=== PATIENT | male | born 1945 | race African-American/Black ===

== ENCOUNTER 2020-08-16 06:32 | Outpatient (CLI) | payer OTHER, SELFPAY ==
--- NOTE | ~2020-08-16 | NM_ITS ---
EXAMINATION: NM bone scan whole body DATE: 08/16/2020 11:02 INDICATION: Prostate cancer TECHNIQUE: 24.2 mCi Tc-99m HDP was administered intravenously. Delayed whole-body scintigrams were o btained. COMPARISON: There are no relevant imaging studies at our institution. FINDINGS: Typical pattern of mild likely degenerative joint and disc centered uptake at the lower cervical spin e, the facet joints of the lower lumbar spine (left greater than right), the bilateral ankles (left g reater than right), bilateral sternoclavicular joints and multiple joints at the bilateral hands. Sof t tissue uptake at the right wrist and forearm likely representing extravasation at the site of injec tion and more proximal local lymphatic uptake. Additional small foci of soft tissue uptake along the medial aspect of the proximal thighs: The medial right calf most likely related to urine contaminatio n. No other suspicious foci of abnormal bone uptake to suggest metastatic disease. IMPRESSION: 1. No evident osseous metastatic disease. Reviewed, dictated and finalized at location A. [facility] [employer]
== END 2020-08-16 06:33 | disposition home or self-care (01) ==
PROVIDERS: PCP Internal Medicine; Visit Provider Urology
DX: C61 Malignant neoplasm of prostate (principal)
CPT/HCPCS: 78306; A9561

== ENCOUNTER 2021-04-12 08:06 | Outpatient (CLI) | payer OTHER, SELFPAY ==
--- NOTE | ~2021-04-12 | NM_ITS ---
EXAMINATION: NM bone scan whole body DATE: 04/12/2021 13:29 INDICATION: Prostate cancer. TECHNIQUE: 26.4 mCi Tc-99m HDP was administered intravenously. Delayed whole-body scintigrams were o btained. COMPARISON: Bone scan 08/16/2020, CT abdomen and pelvis 04/12/2021 FINDINGS: There is joint-centered increased activity in the acromioclavicular joints, sternoclavicula r joints, hands, and knees, likely osteoarthritis. There is increased activity in lumbar spine correl ating with degenerative disc disease and facet joint osteoarthritis by CT. Again seen is increased ac tivity in the area of left ankle joint, which may be osteoarthritis or a chronic fracture. IMPRESSION: 1. No evidence of metastatic disease. Reviewed, dictated and finalized at location A.
--- NOTE | ~2021-04-12 | CT_ITS ---
EXAMINATION: CT abdomen pelvis w con DATE: 04/12/2021 09:24 INDICATION: Prostate cancer TECHNIQUE: Computed tomography (CT) of the abdomen and pelvis was performed with 100 cc Omnipaque 350 intravenous contrast. The dose-length product was 440.72 mGy-cm. Automated exposure control and iter ative reconstruction technique were employed. COMPARISON: None. FINDINGS: There is bilateral lower lobe and right middle lobe atelectasis. Heart size normal. No sign ificant pleural or pericardial effusion. Fatty infiltration of the liver. There are several small subcentimeter hypodensities of the liver, mo st likely benign cysts or hemangiomas. Gallbladder is present. The spleen, pancreas, adrenal glands a nd left kidney are unremarkable. Small subcentimeter hypodensity of the right kidney, most likely ivan ign cysts. Gallbladder is contracted. Colonic diverticulosis without evidence for diverticulitis. Nor mal appendix. No free air or free fluid. Moderate atherosclerosis without aneurysm. There are radiati on therapy implants in the prostate bed. No lymphadenopathy. There is advanced lumbar spondylosis at L4-5. No lytic or blastic lesions to suggest metastasis. Small fat-containing left inguinal hernia. IMPRESSION: 1. No evidence for metastatic disease. 2: Bibasilar atelectasis. 3: Colonic diverticulosis without evidence for diverticulitis. Reviewed, dictated and finalized at location A.
[2021-04-12 09:14] LABS: Estimated Glomerular Filt Rate > 60
== END 2021-04-12 08:07 | disposition home or self-care (01) ==
PROVIDERS: PCP Internal Medicine; Visit Provider Urology
DX: C61 Malignant neoplasm of prostate (principal); R91.8 Other nonspecific abnormal finding of lung field; K57.30 Diverticulosis of large intestine without perforation or abscess without bleeding
CPT/HCPCS: 74177; 78306; A9561; Q9967

== ENCOUNTER 2021-11-24 12:30 | Outpatient (RCR) | payer OTHER, SELFPAY ==
--- NOTE | 2021-10-21 13:44 | PTOPEVAL ---
PHYSICAL THERAPY EVALUATION AND PLAN OF CARE 10-21-21 Thank you for referring John Kim . to [facility] for vestibular rehab/ [facility].? He is scheduled to be seen for therapy? 2 x/week for 4 weeks. Please review, sign, date and return this plan of care ELIANE. I agree with and certify that the following plan of care is medically necessary. Referring Physician Date Attending Provider: Dewey Lee MD PT Outpatient Evaluation Document 10/21/21 12:35 MADELAINE (Rec: 10/21/21 13:44 MADELAINE [id number]) Outpatient Past Medical History Past Medical History Source of Past Medical History Patient Neurological History Hx Neurological Disorders No Significant History Cardiovascular History Hx Hypertension Yes: meds Respiratory History Hx Other Respiratory Disorders Yes: sinus congestion Gastrointestinal History Hx Other Gastrointestinal Disorders Yes: hiatial hernia Musculoskeletal History Hx Orthopedic Surgery Yes: L foot surgery- in walking boot HEENT History Hx Sinus Problems Yes Hx Other HEENT Disorders Yes: ringing in ears, loss of hearing, pain in ear L Other History Hx Cancer Yes: prostate cancer with radiation seeds Hx Other Medical Conditions Yes: issues with sleeping- take lorazapam Evaluation Information Problem Diagnosis B positional vertigo Onset Sep 2021 Prior Level of Function Activity Level (Last 3 Months) Activity of Daily Living Ability Independent Indoor/Home Mobility Independent Community Mobility Independent Stairs Ability Independent Functional Cognition (Planning, Shopping Independent , Taking Medications) Cooking Yes Cleaning Yes Laundry Yes Shopping Yes Driving Yes Home Setting Living Situation With Spouse Mobility Assistive Devices (Used Last 3 None,Cane Months) Comments Additional Prior Level of Function use cane when balance is off Comments from dizziness, help confidence with walking; no falls in the past 6 months; have walking shoe on L foot due to recent foot surgery; reports can do all things at home, but take time doing them Pain Assessment Timing of Pain Assessment Timing of Pain Assessment Assessment Pain Scale Pain Scale Used Numeric (1 - 10) Self Report Pain Assessment Left Spine, Cervical Reported Pain Level
--- NOTE | 2021-10-26 09:54 | PCPTNOTE ---
Patient called & cancelled scheduled appointment this date due to getting test for covid.
--- NOTE | 2021-11-04 11:52 | PCPTNOTE ---
Patient called & cancelled scheduled appointment this date due to not feeling well.
--- NOTE | 2021-11-16 10:37 | PCPTNOTE ---
Patient came in complaining of a having headache,stating he didn't sleep much, feeling nauseate & just not feeling well. Also, stated that his left foot was looking good. Checked his BP 184/86, O2 @ 97%, gave him some water, rechecked BP after 10 mins 176/82. Cancelled his scheduled appointment this date due to BP being elevated, & him not feeling right. Instructed patient to rest & is he doesn't feel better to call his Dr.
--- NOTE | 2021-11-24 13:24 | PTOPEVAL ---
PHYSICAL THERAPY DISCHARGE 11-24-21 Refer to the clinical summary below, for his status today, compared to the initial evaluation. The goals were partially achieved. John will be discharged from PT services at this time. Thank you for referring John Kim to [facility].? Please review, sign, date and return this Discharge report ELIANE. I agree with and certify that the following plan of care is medically necessary. Referring Physician Date Attending Provider: Dewey Lee MD Subjective Information John reports: better with Query Text:As Reported By Patient/ walking and balance, dizziness Family little better; saw foot dr yesterday--still using cane and special shoe; use walking stick (cane) for confidence, feel better when I have the stick, can touch and then won' t wobble; use cane almost all of the time, sometimes leave it in bathroom at home; taking medicine for ear, for itching in both ears L more than R; blood pressure is doing OK, have been taking it at home; have not seen neurologist--one saw before the office closed and need a new one; Pain Assessment Timing of Pain Assessment Timing of Pain Assessment Assessment Pain Scale Pain Scale Used Numeric (1 - 10) Self Report Pain Assessment Left Spine, Cervical Reported Pain Level 5 Pain Frequency Chronic,Continuous Other Pain Description tight and sore Left Foot/Feet Reported Pain Level 0 Pain Score Pain Score 5,0: Self Report Interventions Used Interventions Used By Clinicians Education Balance Assessment Holloway Balance Assessment Sitting to Standing Independent w/out Hands Unsupported Stance Ability Safely- 2 minutes Sitting Unsupported, Feet on Floor Safely- 2 minutes Standing to Sitting Safely, Minimal Hand Use Transfer Ability Safely, Minimal Hand Use Unsupported Stance- Eyes Closed Safely, 10 seconds Unsupported Stance- Feet Together Independent, 1 minute Reaching Forward while Standing Confidently, 10 inches broadcast supervisor Object From Floor Independent/Safe Look Behind Shoulder - Standing Shifts Weight Well Turning 360 Degrees Turns slowly, but safely Unsupported Stance, Alternating Feet on (I)- 8 Steps in > 20 secs Stair Unsupported Tandem Stance Small Step- 30 seconds Unilateral Leg Stance Lifts Leg/Holds > 3 secs HOLLOWAY Balance Evaluation Total Score (/
== END 2021-11-25 15:08 | disposition home or self-care (01) ==
LOC: ANHPT 12:30
PROVIDERS: PCP Internal Medicine; Referring Provider Otolaryngology; Visit Provider Otolaryngology
DX: H81.13 Benign paroxysmal vertigo, bilateral (principal)
CPT/HCPCS: 97110; 97162

== ENCOUNTER 2023-01-08 12:32 | Outpatient (CLI) | payer OTHER, SELFPAY ==
--- NOTE | 2023-01-08 12:40 | ECG_ITS ---
Measurements Intervals [place] Rate: 75 P-R-T 52 -37 -2 IN: 182 QRSD: 100 QT: 377 QTc: 406 Interpretive Statements SINUS RHYTHM LEFT AXIS DEVIATION MINIMAL VOLTAGE CRITERIA FOR LVH NO PRIOR EKG AVAILABLE FOR COMPARISON Electronically Signed On 01-09-2023 14:54:13 CDT by Jason ZHONG
== END 2023-01-08 12:33 | disposition home or self-care (01) ==
PROVIDERS: PCP Internal Medicine; Visit Provider Urology
DX: Z01.810 Encounter for preprocedural cardiovascular examination (principal); I10 Essential (primary) hypertension
CPT/HCPCS: 93005

== ENCOUNTER 2023-01-11 01:44 | Day surgery (SDC) | payer OTHER, SELFPAY ==
--- NOTE | 2023-01-08 09:46 | PC.NURSE ---
Report to the Outpatient Waiting Room, entrance under the green pavilion located off [facility], at time __1245 on date __01/11/23 . Planned Procedure Time: __1445 . Time changes happen often and if your time is changed the preop area will call you the afternoon before. - You and your visitor will be asked to self-screen and do not enter if you have any COVID symptoms. - Only one visitor is requested with a max of two and NO children visitors are allowed at this time. - The patient visitor may be requested to leave or wait in car when not with patient due to distancing restrictions. - A mask is optional within the hospital at this time. Patients may have clear liquids (water, carbonated beverages, clear teas, apple juice) until 3 hours prior to surgery with a maximum of 20 ounces. - No food from midnight until time of surgery - Infants may have breast milk until 4 hours before surgery, formula 6 hours prior to surgery. - Children will be allowed to drink immediately following surgery. If applicable, please bring a bottle or sippy cup to assist with drinking. Juice, water, soda, and popsicles are readily available. For infants on formula, please bring formula the day of surgery. Pacifiers are allowed. Take the following medications with a SIP of water the morning of surgery: ___AMLODIPINE,ATENOLOL DO NOT STOP ANY OF YOUR OTHER PRESCRIPTION MEDICATIONS PRIOR TO SURGERY ?EXCEPT THE FOLLOWING Medications to discontinue per physician ____ALL VITAMINS/SUPPLEMENTS 3 DAYS PRE OP.LAST DOSE 01/07/23 Please no make-up, nail sinhala, hairspray, perfume, deodorant, or body powder the day of surgery. No jewelry (including any body piercings) or valuables the day of surgery, leave them at home. Please take a shower or bath the night before, or the morning of, surgery with an antibacterial soap. Wear comfortable, loose fitting clothing. Children are encouraged to wear pajamas. - Jewelry must be removed prior to entering the operating room. Rings and piercings that are not removed may be cut off. - The hospital will not accept responsibility for valuables. - Please leave all valuables, including medications, at home the day of surgery. If you are going home after surgery, a licensed cdl flatbed truck driver must drive you home. - NO public transportation without another adult if you receive anesthesia. - We recommend that an adult stay with you for 24 hours following discharge. - We also recommend that you do not drive, make important decision, drink alcoholic beverages, or take any drugs that were not prescribed by your health care provider for at least 24 hours after your discharge time. For Pediatric surgeries, we recommend two adults accompany the child home. Follow any additional instructions given to you from your surgeon. If you or anyone in your household have experienced Covid symptoms in the past week, please notify your surgeon or the nurse liaison at the phone number below for possible testing. Telephone instructions given to __PATIENT and asked if any additional questions and then verbalized understanding. Patient advised to call surgeon office or pre surgery nurse liaison [phone] if any additional questions.
[2023-01-08 09:53] VITALS: BMI 26.9
[2023-01-11] VITALS (9 sets, daily range): BP systolic 118–166; BP diastolic 65–92; PULSE 65–101; RESP 12–20; TEMP 36.8–37.6; O2SAT 94–100
--- NOTE | 2023-01-11 06:28 | WPDHPUPDATE1 ---
History and Physical Update Update Date/Time: 01/11/23 06:28 History and Physical has been reviewed, including an updated exam of the patient. There are NO changes in the patient's condition. Risks, benefits, and alternatives have been discussed and questions answered. Patient agrees to proceed with procedure.
[2023-01-11] MEDS: LACTATED RINGERS 1,000 ML 30 ML IV CONT (14:00)
[2023-01-11] MEDS: ceFAZolin 2 GM/D5W 50 ML 2 GM/50 ML BAG IVPB (14:54)
[2023-01-11] MEDS: LIDOCAINE HCL 2% GEL UROJET 10 ML PKG MUCOUS MEM (15:11)
[2023-01-11] MEDS: SODIUM CHLORIDE 0.9% IV 23.7 ML, GEMCITABINE HCL 1,000 MG BLADDER ×2 (15:33)
--- NOTE | 2023-01-11 15:33 | W.PM.PROC2 ---
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 Cystoscopy is undertaken with a 19 F rigid cystoscope. There was no urethral stricture. There was moderate lateral lobe hyperplasia with very early obstruction of the prostatic urethra. There was no significant median lobe enlargement. His bladder mucosa shows a single approximately 4 cm papillary neoplasm involving the right lateral bladder wall. This is lateral to the right ureteral orifice. The remainder of the bladder mucosa and mucosa of the prostatic urethra is without hyperemia her other signs of neoplasm. The ureteral orifices are clear of this neoplasm. The orifices are identified and preserved throughout the procedure. Using a loop electrode I resected this tumor to its base. I sent separate specimens from both the body of the tumor and the tumor base. Base and periphery were cauterized with rollerball electrode. This was a neoplasm located in the right lateral bladder wall very near the bladder neck. Drains Yes Pathology Yes Complications No immediate complications Condition Stable
--- NOTE | 2023-01-11 15:36 | W.PM.PROC2 ---
Procedure Note - Detailed Date of Procedure 01/11/23 Pre-op Diagnosis Bladder cancer Post-op Diagnosis Same Procedure Performed Gemcitabine installation Surgeon Dewey Gaitan MD Anesthesia General and Local Description of Procedure With the patient in the supine position, a 16F Parker catheter is placed using sterile technique. Using a protective facemask, gown and double layer of gloves Gemcitabine 2gm in 100cc saline is administered through the catheter/into the bladder. The catheter is then plugged. Patient was instructed to lie supine x20min, then to roll both the left and right x20 min. each. Total dwell time will be 60 min., after which the bladder will be drained and catheter removed. Drains No Packing Yes Pathology None sent
[2023-01-11] MEDS: fentaNYL CITRATE INJ (*CRX) 100 MCG/2 ML VIAL 25 MCG IV PUSH ×6 (15:52→16:13)
[2023-01-11] MEDS: SODIUM CHLORIDE 0.9% IV 50 ML BAG 150 ML IRRIGATION (16:30)
[2023-01-11] MEDS: oxyCODONE HCL (*CRX) 5 MG TAB IR PO (17:07)
== END 2023-01-11 17:45 | disposition home or self-care (01) ==
PROVIDERS: PCP Internal Medicine; Visit Provider Urology
PROC: 0TBB8ZZ Excision of Bladder, Via Natural or Artificial Opening Endoscopic (ICD-10-PCS; CPT 52235; principal; 2023-01-11 14:45)
PROC: 0TJB8ZZ Inspection of Bladder, Via Natural or Artificial Opening Endoscopic (ICD-10-PCS; CPT 52000; 2023-01-11 14:45)
DX: C67.2 Malignant neoplasm of lateral wall of bladder (principal); N40.0 Benign prostatic hyperplasia without lower urinary tract symptoms; C61 Malignant neoplasm of prostate; N32.81 Overactive bladder; N52.35 Erectile dysfunction following radiation therapy; R31.0 Gross hematuria; I10 Essential (primary) hypertension; E03.9 Hypothyroidism, unspecified; E78.00 Pure hypercholesterolemia, unspecified; Z86.73 Personal history of transient ischemic attack (TIA), and cerebral infarction without residual deficits; Z79.02 Long term (current) use of antithrombotics/antiplatelets
CPT/HCPCS: 52235; 51720; 88305; 88342; 93005; A9270; J0690; J1100; J2405; J2704; J3010; J7120; J9201

== ENCOUNTER 2023-02-07 12:10 | Outpatient (CLI) | payer OTHER, SELFPAY ==
--- NOTE | ~2023-02-07 | PE_ITS ---
EXAMINATION: PET_PETPSMAST_PT DATE: 02/07/2023 15:09 INDICATION: Prostate cancer TECHNIQUE: 10.034 mCi of pipflufolastat F-18 (18-F-DCFPyL) was administered i.v. Low dose computed t omography (CT) images were acquired from the base of the brain to the base of the brain to the proxim al thighs for attenuation correction and anatomic localization. Positron emission tomography (PET) im ages were acquired in the same distribution beginning 97 minutes after injection. Images including fu sed PET/CT images were reconstructed in axial, coronal, and sagittal planes. Automated exposure contr ol technique was employed. The dose-length product was 649.62mGy-cm. COMPARISON: Bone scan and CT abdomen and pelvis dated 04/12/2021. No more recent imaging available for comparison. FINDINGS: Head/neck: Typical pattern of symmetric physiologic increased activity in the lacrimal, parotid and submandibula r glands as well as along the mucosa of the nasal and oral cavities, the chica-, naso- and hypopharynx, the glottis and esophagus. There is also typical pattern of tiny foci of mild uptake at the lateral ganglia bilaterally at the cervical neural foramina. No pathologically enlarged cervical lymphadenopa thy or suspicious foci of increased uptake in the visualized head or neck. Chest: Calcified nodule at the right lower lobe and calcified right hilar and mediastinal lymph nodes consis tent with old granulomatous disease. Mild discoid atelectasis in the bilateral lower lobes. No suspic ious pulmonary nodules, pneumonia, pulmonary edema or pleural effusion. Heart size is normal. Aortic valve calcification. Thoracic aorta is normal in caliber. No pathologically enlarged or PSMA avid tho racic lymphadenopathy. Mild bilateral gynecomastia. Abdomen/pelvis/proximal thighs: Physiologic renal accumulation and excretion of activity in the kidneys, bladder and along portions o f ureters. Normal degree and slightly heterogenous pattern of increased uptake throughout the liver a nd spleen without radiologic correlate or dominant PSMA avid lesion. The gallbladder, pancreas and bi lateral adrenal glands are normal. Moderate uptake scattered throughout the bowels with typical duode nal and proximal jejunal predominance and without radiologic correlate, also likely physiologic. Ther e are numerous colonic diverticula without adjacent inflammatory stranding to suggest diverticulitis. Small to moderate sized fat-containing left inguinal hernia. There are brachial therapy seeds at the prostate. There are at least 4 regions of increased uptake in the prostate, near the midline which c ould represent urine activity however there additional foci of on the left, right and the posterior s uperior prostate which is most consistent with recurrent prostate cancer. The maximal SUV values reac h of these foci measure 34, 35 and 114 respectively. These are located primarily cephalad to the brac hytherapy seeds. Additional in typical pattern of relatively symmetric likely neural ganglion associa kishore mild uptake seen in the region of the lumbar neural foramina. No other abnormal foci of increased uptake or pathologically enlarged lymphadenopathy in the abdomen, pelvis or proximal thighs. Musculoskeletal: Severe cervical and lower lumbar spondylosis. No suspicious lytic, blastic or PSV may avid bone lesio ns. IMPRESSION: 1. 3 foci of prominent PSMA uptake in the prostate primarily cephalad to multiple brachytherapy seeds most consistent with locally recurrent prostate cancer. No evident more remote metastatic disease. Reviewed, dictated and finalized at location B. IMPRESSION: 1. 3 foci of prominent PSMA uptake in the prostate primarily cephalad to multip le brachytherapy seeds most consistent with locally recurrent prostate cancer. No evident more john
== END 2023-02-07 12:11 | disposition home or self-care (01) ==
PROVIDERS: PCP Internal Medicine; Visit Provider Urology
DX: C61 Malignant neoplasm of prostate (principal)
CPT/HCPCS: 78815; A9595

== ENCOUNTER 2025-06-16 09:33 | Outpatient (CLI) | payer OTHER, SELFPAY ==
--- OUTSIDE RECORDS SUMMARY | 2025-06-16 10:38 | XMS_ITS | Clinical Summary ---
Author Organization [facility] Address [address] [place] [address] Care Team Providers Care Senior Sourcing Manager Name Role Phone Grace Paul MD Primary Care Provider [phone] Marck Collier DO Unavailable [phone] Dion Ross MD Unavailable [phone] Ambrosio Sena MD Unavailable [facility], Marck Cummings Unavailable Allergies Active Allergy Reactions Criticality Noted Date Comments Aspirin Rash Medium 05/20/2020 Rash Atorvastatin Agitation Low 04/20/2014 Levofloxacin Swelling,Rash Medium 10/10/2023 soreness Penicillins Rash,Other (See comments) Medium 10/09/2024 Penicillin/Cefazolin Allergy Risk Assessment- had an adult Previously tolerated Cefazolin? [ ] Unknown Please list other antibiotics patient has previously tolerated below for pharmacy: don't remember name Shellfish Rash Medium 05/20/2020 Swelling Shellfish Containing Products Rash Medium 05/21/2022 Sulfamethoxazole-Trime thoprim Unknown 05/20/2020 Patient don't remember Tramadol Unknown 05/20/2020 Patient don't remember Medications allopurinoL (ZYLOPRIM) 100 mg tablet Take 1 tablet (100 mg total) by mouth as needed As needed 3 Active loratadine (CLARITIN) 10 mg tablet Take 1 tablet (10 mg total) by mouth as needed for allergies As needed 3 Active atenoloL (TENORMIN) 100 mg tablet Take 1 tablet (100 mg total) by mouth daily 3 Active PUMPKIN SEED EXTRACT ORAL Take 1,000 mg by mouth daily Planetary Herbals: Pumpkin Seed Oil Softgels Active ergocalciferol (VITAMIN D) 50,000 unit capsule Take 1 capsule (50,000 Units total) by mouth once a week Every Saturdays 3 Active amLODIPine (NORVASC) 10 mg tablet Take 1 tablet (10 mg total) by mouth as needed Active leuprolide, 3 month, (LUPRON) 11.25 mg injection Inject 11.25 mg into the muscle as instructed every 3 (three) months Gets every 3 month per patient. Last dose on in december Active vitamin E 400 unit capsule Take 1 capsule (400 Units total) by mouth daily 4 Active fluticasone propionate (FLONASE) 50 mcg/actuation nasal spray Administer 2 sprays into each nostril as needed 5 Active Active Problems Problem Noted Date Diagnosed Date Exposure to potentially hazardous substance 06/08 Overview (06/24/2024): Jun 18, 2024 Entered By: JIE PERES Comment: Entered automatically through [facility] Problem List documentation program Malignant neoplasm of trigone of urinary bladder 06/24/2024 Benign essential hypertension 03/06/2024 Dermatophytosis 03/06/2024 Gout 03/06/2024 Hearing loss 03/06/2024 Impotence of organic origin 03/06/2024 Mixed hyperlipidemia 03/06/2024 Other adverse food reactions , not elsewhere classified, initial encounter 03/06/2024 Other specified disorders of prostate 03/06/2024 Pain in right finger(s) 03/06/2024 Other pulmonary embolism without acute cor pulmo nale 03/06/2024 Vertigo 03/06/2024 Chemotherapy induced neutropenia 11/21/2023 Platelets decreased 11/14/2023 Chemotherapy induced neutropenia 10/03/2023 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 04/24/2023 Cancer Staging:Clinical stage from 01/11/2023:Stage II(cT2, cN0, cM0) - Signed by Shaheen Romero MD on 04/24/2023 Thumb swelling 09/05/2022 Elevated prostate specific antigen (PSA) 013 Hypertension 08/12/2013 Anxiety 08/12/2013 Malignant neoplasm of prostate 08/12/2013 Cancer Staging:Clinical stage from 08/05/2013:Stage Unknown(rcTX, cNX, cM0) - Signed by Shaheen Romero MD on 04/24/2023 Encounters Date Type Department Care Team Description 06/15/2025 Telephone [facility] Physicians [facility] Surgery [address] [place] [address] Angela Manzo RMA 06/12/2025 Telephone [facility] [address] [place] [address] Anayeli Carolina CMA from Last 3 Months Surgical History Surgery Date Site/Laterality Comments HIATAL HERNIA REPAIR 10/08/1992 - 10/07/1993 CYST REMOVAL 10/08/1969 - 10/07/1970 Back SOFT TISSUE MASS EXCISION 10/08/1994 - 10/07/1995 Right groin CYSTOSCOPY 10/08/2022 - 10/07/2023 TURBT INSERTION PROSTATE RADIATION SEED 10/08/2001 - 2 COLONOSCOPY ESOPHAGOGASTRODUODENOSCOPY Medical History Medical History Date Comments Prostate cancer (HCC) has seeds implant-1999 Hypertension Vertigo Bladder cancer (HCC) chemo Gout Allergic rhinitis Delayed emergence from general anesthesia History of pulmonary embolus (PE) 2022 Anxiety Ambulates with cane Wears glasses Does use hearing aid Wears partial dentures upper ful l and lower partial TIA (transient ischemic attack) not sure, he was told by doctor Refusal of blood product He is a [employer] able to accept cell saver- check POA for more info History of pneumonia as a child Blood in urine Cough occasional produ ctive cough which is getting better per patient- done with antibiotics. Hoarseness of voice Family History Medical History Relation Name Comments No Known Problems Maternal Grandfather No Known Problems Maternal Grandmother Breast cancer Mother Stroke Other Stroke Syndrome - (Added by TW Conv) No Known Problems Paternal Grandfather No Known Problems Paternal Grandmother Breast cancer Sister 1 Breast cancer Sister 2 Prostate cancer Son Relation Name Status Comments Father Maternal Grandfather Maternal Grandmother Mother Other Paternal Grandfather Paternal Grandmother Sister 1 Sister 2 Alive Son Alive Social History Tobacco Use Types Packs/Day Years Used Date Smoking Tobacco: Former Cigarettes 0.1 10 1 965 1971 Smokeless Tobacco: Never Tobacco Cessation:Counseling Given: Yes AUDIT-C Answer Date Recorded Q1: How often do you have a drink containing alc ohol? Monthly or less 12/03/2024 Q2: How many drinks containi ng alcohol do you have on a typical day when you are drinking? 1 or 2 12/03/2024 Q3: How often do you have si x or more drinks on one occasion? Never 12/03/2024 Personal Safety Answer Date Recorded Have you ever been in or are you currently in a harmful physical or emotional relationship or is someone making you feel afraid or unsafe? Denies 12/07/2024 Sex and Gender Information Value Date Recorded Sex Assigned at Not on file Legal Sex Male 9:39 PM AMPOULE INSPECTOR Gender Identity Not on file Sexual Orientation Not on file Occupation Industry Job Start Date Job End Date Retired mailroom coordinator Not on file Not on file Not on file Obstetrics History Last Filed Vital Signs Vital Sign Reading Time Taken Comments Blood Pressure 164/91 12/07/2024 8:12 AM AMPOULE INSPECTOR Pulse 85 12/07/2024 8:12 AM AMPOULE INSPECTOR Temperature 36.8 C (98.2 F) 12/07/2024 8:12 AM AMPOULE INSPECTOR Respiratory Rate 16 12/07/2024 8:12 AM AMPOULE INSPECTOR Oxygen Saturation 99% 12/07/2024 8:12 AM AMPOULE INSPECTOR Inhaled Oxygen Concentration - - Weight 87.1 kg (192 lb) 01/06/2025 8:35 AM CDT Height 177.8 cm (5' 10) 01/06/2025 8:35 AM CDT Body Mass Index 27.55 01/06/2025 8:35 AM CDT Plan of Treatment Health Maintenance Due Date Last Done Comments Depression Screening 1944 DTaP/Tdap/Td Vaccine (1 - Tdap) 1955 Hepatitis B Screening 1962 Zoster Vaccine (1 of 2) 1963 Well Visit 65+ 2009 Pneumococcal vaccine 65+ (2 of 2 - PCV) 07/28/2021 07/28/2020 Covid-19 Vaccine (7 - Pfizer risk season) 2025 07/16/2024, 09/29/2022, 05/15/2022, Additional history exists Influenza Vaccine (#1) 2025 , 07/08/2017, 08/05/2013 Fall Risk Assessment 12/03/2025 12/03/2024, 04/25/20 Prostate Cancer Screening-PSA Discontinued , 07/09/2024, 04/02/2024, Additional history exists Medical Devices Implanted Type Area Radiology Teacher Device Identifier Shelf Expiration Date Model / Serial / Lot Radiation Seeds Prostate Procedures Procedure Name Priority Date/Time Associated Diagnosis Comments PSA DIAGNOSTIC Routine 10/09/2024 8:40 AM AMPOULE INSPECTOR Chemotherapy induced neutropenia Malignant neoplasm of lateral wall of urinary bladder (HCC) from Last 3 Months or Most Recently Relevant to Health Maintenance Results * PSA diagnostic (10/09/2024 8:40 AM AMPOULE INSPECTOR) PSA-Total 0.35 <=6.20 ng/mL Comment: Interpretive Data AGE SEX REFERENCE INTERVAL 0 minutes-150 years Female None 0 minutes-49 years Male None 50-59 years Male 0-3.90 60-69 years Male 0-5.40 70-79 years Male 0-6.20 80-150 years Male 0-6.20 The Janie PSA Total assay procedure was used. Results from different manufacturers or methods may not be comparable. Serial testing should be performed using the same method. Current interpretive data last revised 22. Testing performed by: [facility], [address] [place] [address]., [id number] Blood 10/09/2024 8:40 AM AMPOULE INSPECTOR 10/09/2024 9:39 AM AMPOULE INSPECTOR us Marck Collier DO LAB BLOOD ORDERABLES Final R esult [facility] [address] [facility] Department [place] [address] from Last 3 Months or Most Recently Relevant to Health Maintenance Insurance [employer] MEDICARE [facility]IC[facility] CARE [facility] MEDICARE Advance Directives For more information, please contact: [phone] Documents on File Type Date Recorded Patient Swimming Pool Maintenance Supervisor Expl anation ADVANCE DIRECTIVE 07/09/2024 11:01 AM Upda kishore POA 07/15/2023 ADVANCE DIRECTIVE 04/25/2023 3:18 PM Power of Converter Supervisor-Medical Power of Converter Supervisor 12/04/2022 7:54 PM ADVANCE DIRECTIVE 03/26/2014 12:00 AM MAHNAZ R OF [employer] FIN[employer]CIAL/MEDICAL Care Teams Senior Sourcing Manager Relationship Specialty Start Date End Date Grace Paul MD [address] [place] [address] PCP - General 05/12/20 Marck Collier DO [address] [place] [address] MEDICAL ONCOLOGY, [place] [address] Medical Oncologist/Activities Officer Hematology and Oncology 07/24/23 Dion Ross MD [address] [place] [address] [place] [address] Radiation Oncologist Radiation Oncology 07/24/23 Ambrosio Sena MD [address] [place] [address] SURG UROLOGY [place], [place] [id number] Consulting Physician Urology 07/09[facility]24 [facility] [address] [place] [address] Referring Physician Genetics 10/09/24
--- OUTSIDE RECORDS SUMMARY | 2025-06-16 10:38 | XMS_ITS ---
Author Organization [facility] Address [address] [place] [address] Care Team Providers Care Electric Motor Repair Supervisor Name Role Phone Grace Paul MD Primary Care Provider [phone] Marck Collier DO Unavailable Dion Ross MD Unavailable [phone] Ambrosio Sena MD Unavailable [facility], Marck Cummings Unavailable Active Problems Problem Noted Date Diagnosed Date [...] Signed by Shaheen Romero MD on 04/24/2023 Current Treatment and Therapy Plans No current plan information found. Past Treatment and Therapy Plans Oncology Chemotherapy Treatment Plan Name Start Date Discontinue Date Treatment Medications Discontinue Reason Plan Provider Cycles Degarelix 28 Day Cycles - Prostate 08/09/2023 04/02/2024 degarelix (FIRMAGON) Therapy Complete Marck Collier DO 8 of 8 cycles started Oncology Supportive Care Therapy Plan Plan Name Start Date Discontinue Date Treatment Medications Discontinue Reason Plan Provider Filgrastim or BIOSIMILAR Subcutaneous 10/03/2023 11/21/2023 No medications scheduled. Protocol Amendment/Macrk Johns DO Oncology Treatment (2) Plan Name Start Date Discontinue Date Treatment Medications Discontinue Reason Plan Provider Cycles Leuprolide Every 3 Months - Prostate 4 10/09/2024 leuprolide (3 month) (ELIGARD)leupro lide (ELIGARD) Patient Preference Marck Collier DO 2 of 5 cycles started Gemcitabine / CISplatin days 1,8 every 21 Day Cycles - Bladder 3 01/23/2024 CISplatin (PLATINOL)CISpl atin (PLATINOL) IVPB in 250 mLgemcitabine (GEMZAR)gemcita bine (GEMZAR) IVPB in 250 mL (using 38 mg/mL gemCITabine) (J9201)gemcitab ine IVPB in 250 mL (using 100 mg/ml gemcitabine) ([id number]) Therapy Complete Marck Collier DO 4 of 4 cycles completed Specialty Infusion Treatment Plan Name Start Date Discontinue Date Treatment Medications Discontinue Reason Plan Provider Hydration Therapy Plan 10/24/2023 01/23/2024 No medications scheduled. Therapy Complete Marck Collier, DO
--- OUTSIDE RECORDS SUMMARY | 2025-06-16 10:38 | XMS_ITS | Encounter Summary ---
Author Organization [facility] Address [address] [place] [address] Phone Care Team Providers Care Acute Care Clinical Nurse Specialist Name Role Phone Grace Paul MD Primary Care Provider [phone] Marck Collier DO Unavailable [phone] Dion Ross MD Unavailable [phone] Ambrosio Sena MD Unavailable [facility], Marck Cummings Unavailable Encounter Details Date Type Department Care Team (Late st Contact Info) Description 06/15/[address] 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 Not on file Not on file Not on file documented as of this encounter Miscellaneous Notes * Telephone Encounter - Angela Manzo RMA - 06/15/2025 10:57 AM CDT Confirmed appt 06/18/2025 ArturHillary documented in this encounter Plan of Treatment Not on file documented as of this encounter Visit Diagnoses Not on filedocumented in this encounter Care Teams Acute Care Clinical Nurse Specialist Relationship Specialty Start Date End Date Grace Paul MD [address] [place] [address] PCP - General 05/12/20 Marck Collier DO [address] [place] [address] MEDICAL ONCOLOGY, [address] [address] Medical Oncologist/Cafeteria Clerk Hematology and Oncology 07/24/23 Dion Ross MD [address] [place] [address] [address] Radiation Oncologist Radiation Oncology 07/24/23 Ambrosio Sena MD [address] [place] [address] SURG UROLOGY [place], [place] [id number] Consulting Physician Urology 07/09/24 [facility] [address] [place] [address] Referring Physician Genetics 10/09/24 documented as of this encounter
== END 2025-06-16 09:34 | disposition home or self-care (01) ==
LOC: ANHAUDIO 09:34
PROVIDERS: PCP Internal Medicine; Visit Provider Otolaryngology Otolaryngology/Facial Plastic Surgery
DX: H65.90 Unspecified nonsuppurative otitis media, unspecified ear (principal); R42 Dizziness and giddiness; I10 Essential (primary) hypertension; H90.3 Sensorineural hearing loss, bilateral; Z97.4 Presence of external hearing-aid; Z92.21 Personal history of antineoplastic chemotherapy
CPT/HCPCS: 92557; 92567